=== PATIENT | female | born 1960 | race Caucasian/White ===

== ENCOUNTER 2018-07-28 09:14 | Outpatient (CLI) | payer SELFPAY ==
--- NOTE | 2018-07-28 13:57 | Diagnostic Imaging Report ---
ANUP PRASAD [facility] [address] [facility] [address] [place], [place]. [id number] Report Submission Date: Jul 28, 2018 10:31:10 AM CDT Patient Study Name: ROBB LIU Date: Jul 28, 2018 9:30:35 AM CDT Modality Type: DX Gender: F Description: CHEST : 56 Institution: [facility] Physician: ANUP PRASAD PA and lateral chest History: Cough PA and lateral chest dated July 28, 2018 demonstrates a small focal infiltrate medially at the right lung base consistent with pneumonia. Heart size is normal. There is a presumed ponytail hightower projecting over the left upper lobe. Otherwise, the left lung is clear. There is no pleural effusion. Impression: Medially at the right lung base, there is a small focal infiltrate consistent with pneumonia. Presumed ponytail hightower projecting over the left upper lobe. Electronically signed on Jul 28, 2018 10:31:10 AM CDT by: Yumiko Kaba Addendum: Additional PA radiograph was obtained without the patient's ponytail overlying the left upper lobe. The left upper lobe is clear. Addendum electronically signed by Yumiko Kaba on July 28, 2018 1:52:19 PM CDT [facility]
[2018-07-28 20:40] LABS: BASO % 0.3 % (0.0-1.5); EOS % 1.1 % (0.0-6.8); LYMPH ABS # 1.07 thou/uL (0.60-4.00); MCH. 32.4 pg (28.0-34.0); MCV 97.6 fL (80.0-100.0); MONOCYTE % 9.4 % (0.0-11.0); MONOCYTE ABS # 0.71 thou/uL (0.00-0.90); PLATELET COUNT 249 thou/uL (130-400)
== END 2018-07-28 09:15 ==
LOC: LAB 09:14
PROVIDERS: ATTEND Nurse Practitioner Family
DX: R05 Cough (principal)
CPT/HCPCS: 71046; 85025